=== PATIENT | female | born 1995 | race Hispanic/Latino ===

== ENCOUNTER 2021-04-16 09:30 | Emergency (ER) | payer SELFPAY ==
[2021-04-16] MEDS ORDERED: KETOROLAC 30 MG/1 ML INJ IM ONE (12:14)
[2021-04-16] MEDS ORDERED: predniSONE 10 MG TAB PO ONE (12:14)
--- NOTE | 2021-04-16 12:15 | Emergency Department Report ---
ED Back Pain/Injury HPI - General Chief Complaint: Back Pain/Injury Stated Complaint: BODY PAIN Time Seen by Provider: 04/16/21 12:09 Source: patient Limitations: No Limitations - History of Present Illness Initial Comments: 25-year-old female presents to the emergency room complaining of acute on chronic back pain for the last 3 days. Patient states that she has not taken anything for her pain. She denies any dysuria. She denies any fever no IV drug use no unintentional weight loss. She states that she has been on steroids but has been off for a while. She reports her last menstrual period was March 07, 2021 and states that she is not . She is followed by a chiropractor. She denies any recent injuries. She denies any fever shortness of breath or chest pain. States that she has pain in her shoulders. Reports she works at [employer] and is constantly standing. MD Complaint: back pain - Related Data Previous Rx's Medication Instructions Recorded Last Taken Type Ibuprofen [Motrin 600 MG tab] 600 mg PO Q8H PRN #30 tablet 04/16/21 Unknown Rx Allergies Allergy/AdvReac Type Severity Reaction Status Date / Time No Known Allergies Allergy Verified 04/16/21 10:12 ED Review of Systems ROS: Stated complaint: BODY PAIN Other details as noted in HPI Comment: All other systems reviewed and negative ED Past Medical Hx - Past Medical History Previous Medical History?: No - Surgical History Past Surgical History?: No - Medications Home Medications: Home Medications Medication Instructions Recorded Confirmed Last Taken Type Ibuprofen [Motrin 600 MG tab] 600 mg PO Q8H PRN #30 tablet 04/16/21 Unknown Rx ED Physical Exam - General Limitations: No Limitations General appearance: alert, in no apparent distress - Head Head exam: Present: atraumatic, normocephalic - Eye Eye exam: Present: normal appearance - ENT ENT exam: Present: mucous membranes moist - Neck Neck exam: Present: normal inspection - Respiratory Respiratory exam: Present: normal lung sounds bilaterally. Absent: respiratory distress - Cardiovascular Cardiovascular Exam: Present: regular rate, normal rhythm. Absent: systolic murmur, diastolic murmur, rubs, gallop - GI/Abdominal GI/Abdominal exam: Present: soft, normal bowel sounds - Extremities Exam Extremities exam: Present: normal inspection - Back Exam Back exam: Present: normal inspection, full ROM - Expanded Back Exam Expanded Back exam: Sciatic Notch Tenderness: Left, Right - Neurological Exam Neurological exam: Present: alert, oriented X3, normal gait - Psychiatric Psychiatric exam: Present: normal affect, normal mood - Skin Skin exam: Present: warm, dry, intact, normal color. Absent: rash ED Course Vital Signs 04/16/21 10:12 Temperature 98.9 F Pulse Rate 100 H Respiratory 16 Rate Blood Pressure 106/66 [Left] O2 Sat by Pulse 100 Oximetry ED Medical Decision Making - Medical Decision Making 25-year-old female presents to the emergency room complaining of acute on chronic back pain for the last 3 days. Patient states that she has not taken anything for her pain. She denies any dysuria. She denies any fever no IV drug use no unintentional weight loss. She states that she has been on steroids but has been off for a while. She reports her last menstrual period was March 07, 2021 and states that she is not . She is followed by a chiropractor. She denies any recent injuries. She denies any fever shortness of breath or chest pain. States that she has pain in her shoulders. Reports she works at [employer] and is constantly standing. Critical care attestation.: If time is entered above; I have spent that time in minutes in the direct care of this critically ill patient, excluding procedure time. ED Disposition Clinical Impression: Acute exacerbation of chronic low back pain Disposition: 01 HOME / SELF CARE / HOMELESS Is pt being admited?: No Does the pt Need Aspirin: No Condition: Stable Instructions: Chronic Back Pain, [id number] Additional Instructions: Please take pain medication as prescribed. Is important you follow back up with your back specialist. Increase your fluid intake advance your diet as tolerated. Prescriptions: Ibuprofen [Motrin 600 MG tab] 600 mg PO Q8H PRN #30 tablet PRN Reason: Pain Referrals: PRIMARY CARE, [Primary Care Provider] - 3-5 Days RADHA VACA II, MD [Staff Physician] - 3-5 Days Forms: Work/School Release Form(ED) Time of Disposition: 13:34
[2021-04-16 13:46] VITALS: BP 98/66
== END 2021-04-16 13:46 | disposition home or self-care (01) ==
LOC: ED 09:30
DX: G89.29 Other chronic pain (principal); M54.50 Low back pain, unspecified
CPT/HCPCS: 96372; 99282; J1885; J7512